=== PATIENT | male | born 1995 | race Caucasian/White ===

== ENCOUNTER 2016-06-09 16:53 | Emergency (ER) | payer OTHER ==
--- NOTE | 2016-06-09 17:38 | EDDOCDS ---
Nurse's Notes [facility] Name: John Jamison Age: 20 yrs Sex: Male : 1995 Arrival Date: 06/09/2016 Time: 16:53 Bed Triage 3 Private MD: DEANGELO Maradiaga Diagnosis: Gastrointestinal hemorrhage, unspecified-likely internal hemorrhoid, lower GI source;Constipation Presentation: 06/09 16:57 Presenting complaint: Patient states: Blood in toilet this afternoon following BM. ck1 Denies pain, states "it was difficult to go". Adult Sepsis Screening: The patient does not have new or worsening altered mentation. Patient's respiratory rate is less than 22. Systolic blood pressure is greater than 100. Patient has a qSOFA score of 0- Negative Sepsis Screen. Suicide/Homicide risk assessment- the patient denies having any suicidal and/or homicidal ideations and does not present with any other emotional, behavioral or mental health complaints. Status: The patient is an active duty rehabilitation services manager. Transition of care: patient was not received from another setting of care. 16:57 Acuity: BOBBI Level 4 ck1 16:57 Method Of Arrival: Walkin/Carried/Asstd ck1 Triage Assessment: 16:59 General: Appears in no apparent distress, comfortable, Behavior is appropriate for age, ck1 cooperative. Pain: Denies pain. HIV screening NA for this visit Offered previously. GI: Reports bloody stools. Derm: Skin is pink, warm & dry. Historical: - Allergies: PENICILLINS; - Home Meds: 1. none - PMHx: none; - PSHx: none; - Social history: Smoking status: Patient states was never smoker of tobacco. No barriers to communication noted, The patient speaks fluent Maltese, Speaks appropriately for age. - Family history: Not pertinent. - : The pt / caregiver states he / she is not on anticoagulants. Home medication list is obtained from the patient. - Exposure Risk Screening:: None identified. Screenin:04 Screening information is obtained from the patient. Fall risk: No risks identified. lf1 Assistance ADL's: requires no assistance with activities of daily living. Abuse/DV Screen: The patient / caregiver reports he/she is: not in a situation that causes fear, pain or injury. Nutritional screening: No deficits noted. Advance Directives: Currently, there is no health care proxy. home support is adequate. Assessment: 17:04 Adult Sepsis Screening: The patient does not have new or worsening altered mentation. lf1 Patient's respiratory rate is less than 22. Systolic blood pressure is greater than 100. Patient has a qSOFA score of 0- Negative Sepsis Screen. General: Appears in no apparent distress, comfortable, Behavior is cooperative. Pain: Denies pain. Neurological: Level of Consciousness is awake, alert, Oriented to person, place, time. EENT: No deficits noted. Cardiovascular: Chest pain is denied. Respiratory: Respiratory effort is even, unlabored. GI: Reports bloody stools reports chronic constipation, does not know if he has ever had hemorrhoids. : Denies burning with urination, urinary frequency. Derm: No deficits noted. 17:37 General: Appears in no apparent distress, comfortable, Behavior is appropriate for age, mcp cooperative. Pain: Denies pain. Respiratory: Respiratory effort is unlabored. GI: No deficits noted. Derm: Skin is pink, warm & dry. Vital Signs: 16:55 BP 156 / 83; Pulse 70; Resp 18; Temp 98.8; Pulse Ox 99% ; Weight 74.84 kg; Height 70 elp in. (177.80 cm); 16:55 Body Mass Index 23.67 (74.84 kg, 177.80 cm) [facility] Vitals: 16:55 Log In Time: June 09, 2016 at 16:53. [facility] ED Course: 16:54 Patient visited by Rut Charles PCA. elp 16:54 Patient moved to Waiting elp 16:55 Ashwini [facility] is Private Physician. elp 16:56 Patient visited by Rut Charles PCA. elp 16:56 Patient moved to Pre RCE elp 16:58 Triage Initiated ck1 16:59 Patient moved to Triage 3 ck1 17:04 [facility] ar2 17:04 Rona Varghese MD is Attending Physician. ar2 17:05 Patient visited by Anuj Mosher PA-C. ar2 17:06 Patient visited by Jacqui Olivier RN. lf1 17:19 Patient moved to PR2 / 26 [facility] 17:20 Patient moved to Triage 3 mcp 17:25 Patient name changed from John\\S\\\\S\\Sease\\S\\ to John\\S\\Gabriela\\S\\Sease. EDGA 17:27 [facility] Payment Agreement was scanned into [employer] and attached to record. 17:28 Ashwini [facility] is Referral Physician. ar2 17:37 The patient / caregiver is instructed regarding the plan of care and ED course. [facility] 17:37 No IV's were initiated during this patient's visit. No procedures done that require mcp assistance. Order Results: There are currently no results for this order. Outcome: 17:29 Discharge ordered by Provider. ar2 17:36 Discharge Assessment: Patient awake, alert and oriented x 3. No cognitive and/or mcp functional deficits noted. Patient verbalized understanding of disposition instructions. patient administered narcotics - no. The following High Risk Discharge criteria are identified: None. Discharged to home ambulatory, with family. Condition: stable. Discharge instructions given to patient, Instructed on discharge instructions, follow up and referral plans. medication usage, Demonstrated understanding of instructions, medications, Pt was receptive of discharge instructions/ teaching. Prescriptions given X 2. No special radiology studies were completed. Property :Personal belongings accompany Pt. 17:37 Patient left the ED. [facility] Signatures: [facility] Connie Casas RN RN mcp Barnhardt, Gloria, Lorenzo Ventura Marilu Shook RN RN [email or web address] Jacqui Olivier RN RN lf1 Anuj Mosher, PAPillo PAPillo ar2 Patchen, Rut, FIELD PROPERTY LOSS SPECIALIST FIELD PROPERTY LOSS SPECIALIST elp YAZMIND
--- NOTE | 2016-06-09 17:38 | EDDOCDS ---
Physician Documentation [facility] Name: John Jamison Age: 20 yrs Sex: Male : 1995 Arrival Date: 06/09/2016 Time: 16:53 Bed Triage 3 Private MD: DEANGELO Maradiaga Disposition: 06/09/16 17:29 Discharged to Home/Self Care. Impression: Gastrointestinal hemorrhage, unspecified - likely internal hemorrhoid, lower GI source, Constipation. - Condition is Stable. - Discharge Instructions: Constipation, Adult, High-Fiber Diet, Gastrointestinal Bleeding, Hemorrhoids. - Prescriptions for Colace 100 mg Oral Tablet - take 1 tablet by ORAL route every 12 hours; 14 tablet. Anusol- HC 25 mg Rectal Suppository - insert 1 suppository by RECTAL route every 12 hours As needed; 20 suppository. - Medication Reconciliation, Local Pharmacy Hours form. - Follow up: DEANGELO Maradiaga; When: Call to arrange an appointment; Reason: Recheck today's complaints, Continuance of care. Follow up: Emergency Department; When: As needed; Reason: Worsening of conditions. - Problem is new. - Symptoms have improved. Historical: - Allergies: PENICILLINS; - Home Meds: 1. none - PMHx: none; - PSHx: none; - Social history: Smoking status: Patient states was never smoker of tobacco. No barriers to communication noted, The patient speaks fluent Jamaican, Speaks appropriately for age. - Family history: Not pertinent. - : The pt / caregiver states he / she is not on anticoagulants. Home medication list is obtained from the patient. - Exposure Risk Screening:: None identified. Vital Signs: 06/09 16:55 BP 156 / 83; Pulse 70; Resp 18; Temp 98.8; Pulse Ox 99% ; Weight 74.84 kg / 164.99 lbs; elp Height 70 in. (177.80 cm); 16:55 Body Mass Index 23.67 (74.84 kg, 177.80 cm) elp MDM: 17:05 Undress patient appropriately for examination ordered. [facility]2 [facility]. ar2 17:22 Financial registration complete. 17:27 [facility] Payment Agreement was scanned into [employer] and attached to record. gb Signatures: Connie Casas RN Geena Olguin mcp, Reg Reg gb Marilu Shook,EMMA RN ck1 Anuj Mosher, HEIDE PAPillo [email or web address] The chart was reviewed and I authenticate all verbal orders and agree with the evaluation and treatment provided.Attachments: 17:27 [facility] Payment Agreement gb MTDD
--- NOTE | 2016-06-11 18:38 | EDDOCDS ---
Physician Documentation [facility] Name: John Jamison Age: 20 yrs Sex: Male : 1995 Arrival Date: 06/09/2016 Time: 16:53 Bed Triage 3 Private MD: DEANGELO Maradiaga Disposition: 06/09/16 17:29 Discharged to Home/Self Care. Impression: Gastrointestinal hemorrhage, unspecified - likely internal hemorrhoid, lower GI source, Constipation. - Condition is Stable. - Discharge Instructions: Constipation, Adult, High-Fiber Diet, Gastrointestinal Bleeding, Hemorrhoids. - Prescriptions for Colace 100 mg Oral Tablet - take 1 tablet by ORAL route every 12 hours; 14 tablet. Anusol- HC 25 mg Rectal Suppository - insert 1 suppository by RECTAL route every 12 hours As needed; 20 suppository. - Medication Reconciliation, Local Pharmacy Hours form. - Follow up: DEANGELO Maradiaga; When: Call to arrange an appointment; Reason: Recheck today's complaints, Continuance of care. Follow up: Emergency Department; When: As needed; Reason: Worsening of conditions. - Problem is new. - Symptoms have improved. Historical: - Allergies: PENICILLINS; - Home Meds: 1. none - PMHx: none; - PSHx: none; - Social history: Smoking status: Patient states was never smoker of tobacco. No barriers to communication noted, The patient speaks fluent New Zealander, Speaks appropriately for age. - Family history: Not pertinent. - : The pt / caregiver states he / she is not on anticoagulants. Home medication list is obtained from the patient. - Exposure Risk Screening:: None identified. Vital Signs: 06/09 16:55 BP 156 / 83; Pulse 70; Resp 18; Temp 98.8; Pulse Ox 99% ; Weight 74.84 kg / 164.99 lbs; elp Height 70 in. (177.80 cm); 16:55 Body Mass Index 23.67 (74.84 kg, 177.80 cm) elp MDM: 17:05 Undress patient appropriately for examination ordered. ar2 17:05 Misc. Nursing Order ordered. ar2 17:22 Financial registration complete. 17:27 [facility] Payment Agreement was scanned into [employer] and attached to record. gb 06/10 19:18 T-Sheet-- Draft Copy was scanned into [employer] and attached to record. klr Signatures: Connie Casas RN RN mcp Geena Deras, Reg Reg gb Ann-Marilu Liu RN RN ck1 Anuj Mosher, HEIDE [email or web address] Mirlande Camarar The chart was reviewed and I authenticate all verbal orders and agree with the evaluation and treatment provided.Attachments: 06/09 17:27 [facility] Payment Agreement gb 06/10 19:18 T-Sheet-- Draft Copy klr Chart Complete MTDD
--- NOTE | 2016-06-11 18:38 | EDDOCDS ---
Nurse's Notes [facility] Name: John Jamison Age: 20 yrs Sex: Male : 1995 Arrival Date: 06/09/2016 Time: 16:53 Bed Triage 3 Private MD: DEANGELO Maradiaga Diagnosis: Gastrointestinal hemorrhage, unspecified-likely internal hemorrhoid, lower GI source;Constipation Presentation: 06/09 16:57 Presenting complaint: Patient states: Blood in toilet this afternoon following BM. ck1 Denies pain, states "it was difficult to go". Adult Sepsis Screening: The patient does not have new or worsening altered mentation. Patient's respiratory rate is less than 22. Systolic blood pressure is greater than 100. Patient has a qSOFA score of 0- Negative Sepsis Screen. Suicide/Homicide risk assessment- the patient denies having any suicidal and/or homicidal ideations and does not present with any other emotional, behavioral or mental health complaints. Status: The patient is an active duty visitor services associate. Transition of care: patient was not received from another setting of care. 16:57 Acuity: BOBBI Level 4 ck1 16:57 Method Of Arrival: Walkin/Carried/Asstd ck1 Triage Assessment: 16:59 General: Appears in no apparent distress, comfortable, Behavior is appropriate for age, ck1 cooperative. Pain: Denies pain. HIV screening NA for this visit Offered previously. GI: Reports bloody stools. Derm: Skin is pink, warm & dry. Historical: - Allergies: PENICILLINS; - Home Meds: 1. none - PMHx: none; - PSHx: none; - Social history: Smoking status: Patient states was never smoker of tobacco. No barriers to communication noted, The patient speaks fluent Thai, Speaks appropriately for age. - Family history: Not pertinent. - : The pt / caregiver states he / she is not on anticoagulants. Home medication list is obtained from the patient. - Exposure Risk Screening:: None identified. Screenin:04 Screening information is obtained from the patient. Fall risk: No risks identified. lf1 Assistance ADL's: requires no assistance with activities of daily living. Abuse/DV Screen: The patient / caregiver reports he/she is: not in a situation that causes fear, pain or injury. Nutritional screening: No deficits noted. Advance Directives: Currently, there is no health care proxy. home support is adequate. Assessment: 17:04 Adult Sepsis Screening: The patient does not have new or worsening altered mentation. lf1 Patient's respiratory rate is less than 22. Systolic blood pressure is greater than 100. Patient has a qSOFA score of 0- Negative Sepsis Screen. General: Appears in no apparent distress, comfortable, Behavior is cooperative. Pain: Denies pain. Neurological: Level of Consciousness is awake, alert, Oriented to person, place, time. EENT: No deficits noted. Cardiovascular: Chest pain is denied. Respiratory: Respiratory effort is even, unlabored. GI: Reports bloody stools reports chronic constipation, does not know if he has ever had hemorrhoids. : Denies burning with urination, urinary frequency. Derm: No deficits noted. 17:37 General: Appears in no apparent distress, comfortable, Behavior is appropriate for age, mcp cooperative. Pain: Denies pain. Respiratory: Respiratory effort is unlabored. GI: No deficits noted. Derm: Skin is pink, warm & dry. Vital Signs: 16:55 BP 156 / 83; Pulse 70; Resp 18; Temp 98.8; Pulse Ox 99% ; Weight 74.84 kg; Height 70 elp in. (177.80 cm); 16:55 Body Mass Index 23.67 (74.84 kg, 177.80 cm) [facility] Vitals: 16:55 Log In Time: June 09, 2016 at 16:53. [facility] ED Course: 16:54 Patient visited by Rut Charles PCA. elp 16:54 Patient moved to Waiting elp 16:55 Ashwini [facility] is Private Physician. elp 16:56 Patient visited by Rut Charles PCA. elp 16:56 Patient moved to Pre RCE elp 16:58 Triage Initiated ck1 16:59 Patient moved to Triage 3 ck1 17:04 [facility]C [facility] ar2 17:04 Rona Varghese MD is Attending Physician. ar2 17:05 Patient visited by Anuj Mosher PA-C. ar2 17:06 Patient visited by Jacqui Olivier RN. lf1 17:19 Patient moved to PR2 / 26 [facility] 17:20 Patient moved to Triage 3 mcp 17:25 Patient name changed from John\\S\\\\S\\Sease\\S\\ to John\\S\\Gabriela\\S\\Sease. EDMS 17:27 [facility] Payment Agreement was scanned into [employer] and attached to record. jen 17:28 Ashwini [facility] [place] is Referral Physician. ar2 17:37 The patient / caregiver is instructed regarding the plan of care and ED course. [facility] 17:37 No IV's were initiated during this patient's visit. No procedures done that require mcp assistance. 06/10 19:18 T-Sheet-- Draft Copy was scanned into [employer] and attached to record. klr Order Results: There are currently no results for this order. Outcome: 06/09 17:29 Discharge ordered by Provider. ar2 17:36 Discharge Assessment: Patient awake, alert and oriented x 3. No cognitive and/or mcp functional deficits noted. Patient verbalized understanding of disposition instructions. patient administered narcotics - no. The following High Risk Discharge criteria are identified: None. Discharged to home ambulatory, with family. Condition: stable. Discharge instructions given to patient, Instructed on discharge instructions, follow up and referral plans. medication usage, Demonstrated understanding of instructions, medications, Pt was receptive of discharge instructions/ teaching. Prescriptions given X 2. No special radiology studies were completed. Property :Personal belongings accompany Pt. 17:37 Patient left the ED. [facility] Signatures: Dispatcher [employer] EDMS Connie Casas, RN RN [facility] Geena Deras, Reg Reg Marilu BrianRN RN ck1 Jacqui Olivier RN RN lf1 Anuj Mosher, PAPillo PAPillo ar2 Rut Charles PCA PCA elp Redder, Kathie klr Chart Complete MTDD
--- NOTE | 2016-06-11 18:38 | EDDOCDS ---
Physician Documentation [facility] Name: John Jamison Age: 20 yrs Sex: Male : 1995 Arrival Date: 06/09/2016 Time: 16:53 Bed Triage 3 Private MD: DEANGELO Maradiaga Disposition: 06/09/16 17:29 Discharged to Home/Self Care. Impression: Gastrointestinal hemorrhage, unspecified - likely internal hemorrhoid, lower GI source, Constipation. - Condition is Stable. - Discharge Instructions: Constipation, Adult, High-Fiber Diet, Gastrointestinal Bleeding, Hemorrhoids. - Prescriptions for Colace 100 mg Oral Tablet - take 1 tablet by ORAL route every 12 hours; 14 tablet. Anusol- HC 25 mg Rectal Suppository - insert 1 suppository by RECTAL route every 12 hours As needed; 20 suppository. - Medication Reconciliation, Local Pharmacy Hours form. - Follow up: DEANGELO Maradiaga; When: Call to arrange an appointment; Reason: Recheck today's complaints, Continuance of care. Follow up: Emergency Department; When: As needed; Reason: Worsening of conditions. - Problem is new. - Symptoms have improved. Historical: - Allergies: PENICILLINS; - Home Meds: 1. none - PMHx: none; - PSHx: none; - Social history: Smoking status: Patient states was never smoker of tobacco. No barriers to communication noted, The patient speaks fluent Comoran, Speaks appropriately for age. - Family history: Not pertinent. - : The pt / caregiver states he / she is not on anticoagulants. Home medication list is obtained from the patient. - Exposure Risk Screening:: None identified. Vital Signs: 06/09 16:55 BP 156 / 83; Pulse 70; Resp 18; Temp 98.8; Pulse Ox 99% ; Weight 74.84 kg / 164.99 lbs; elp Height 70 in. (177.80 cm); 16:55 Body Mass Index 23.67 (74.84 kg, 177.80 cm) elp MDM: 17:05 Undress patient appropriately for examination ordered. ar2 17:05 Misc. Nursing Order ordered. ar2 17:22 Financial registration complete. 17:27 [facility] Payment Agreement was scanned into [employer] and attached to record. gb 06/10 19:18 T-Sheet-- Draft Copy was scanned into [employer] and attached to record. klr Signatures: Connie Casas RN RN mcp Geena Deras, Reg Reg gb Ann-Marilu Liu RN RN ck1 Anuj Mosher, HEIDE [email or web address] Mirlande Camarar The chart was reviewed and I authenticate all verbal orders and agree with the evaluation and treatment provided.Attachments: 06/09 17:27 [facility] Payment Agreement gb 06/10 19:18 T-Sheet-- Draft Copy klr Chart Complete MTDD
== END 2016-06-09 17:37 | disposition home or self-care (01) ==
LOC: M ED 16:53
DX: K62.5 Hemorrhage of anus and rectum (principal); K64.9 Unspecified hemorrhoids; Z88.0 Allergy status to penicillin

== ENCOUNTER 2016-08-23 16:37 | Emergency (ER) | payer OTHER ==
[~2016-08-23] VITALS: Ht 177.8 cm; Wt 74.8 kg
[2016-08-23] MEDS ORDERED: NAPR500T PO (17:16)
[2016-08-23 17:29] VITALS: BP 136/83
== END 2016-08-23 18:07 | disposition home or self-care (01) ==
LOC: M ED 17:37
DX: M76.52 Patellar tendinitis, left knee (principal); Z88.0 Allergy status to penicillin